=== PATIENT | male | born 2000 | race Caucasian/White ===

== ENCOUNTER 2025-04-13 11:29 | Emergency (ER) | payer OTHER, SELFPAY ==
--- NOTE | 2025-04-13 11:44 | ED_ITS ---
HPI - URI/Sore Throat General Chief Complaint: Upper Respiratory Infection Stated Complaint: SORE THROAT Time Seen by Provider: 04/13/25 11:44 Source: patient Mode of arrival: ambulatory Limitations: no limitations History of Present Illness HPI Narrative: 24-year-old male presents with complaint of sore throat for 12 days. Afebrile. Reports fatigue. Approximately 1 week ago was given a Z-Shravan prescription that his mother had all, took 3 days of antibiotics and then lost prescription package. States the last 2 days sore throat is worse. All systems reviewed and negative except as noted above. Related Data Allergies Allergy/AdvReac Type Severity Reaction Status Date / Time No Known Allergies Allergy Verified 04/13/25 11:48 Review of Systems Review of Systems: CONSTITUTIONAL: Denies fever, chills, or sweats. Reports fatigue. EYES: Denies visual changes, redness, or discharge. ENT: Denies rhinorrhea, congestion. Reports sore throat. Denies otalgia. CARDIOVASCULAR: Denies chest pain, palpitations, or edema. RESPIRATORY: Denies cough or dyspnea. GASTROINTESTINAL: Denies abdominal pain, nausea, vomiting, or diarrhea. GENITOURINARY: Denies dysuria or hematuria. SKIN: Denies rash or itching. MUSCULOSKELETAL: Denies back pain, joint pain, or myalgia. NEUROLOGIC: Denies headache, numbness, or weakness. PSYCHIATRIC: Denies anxiety or depression. All other systems reviewed are negative, except as documented in HPI. PMFSH Comments At time of signature, agree with nursing past medical, surgical, social and family history. There is no relevant family history pertinent to the presenting complaint. Exam Narrative: GENERAL: This is a well-nourished, well-developed patient, in no apparent distress. HEAD: normocephalic, atraumatic. EYES: PERRL. Sclera clear/white. Vision is grossly intact. EARS: External ears normal, auditory canals clear and without drainage, TMs no rmal without perforation. Hearing grossly intact. NOSE: External nose normal with no obvious nasal discharge, nares without redness, no rhinorrhea. THROAT: Mucous membranes moist, erythematous with mild swelling. No significant swelling noted to tonsils, no exudates NECK: Neck supple, non-tender without lymphadenopathy, masses or thyromegaly. CARDIOVASCULAR: Regular rate and rhythm without murmurs, gallops, or rubs. RESPIRATORY: Clear to auscultation. Breath sounds equal bilaterally. No wheezes, rales, or rhonchi. SKIN: warm, Dry, intact with no suspicious lesions or rash, good texture and turgor. NEURO: awake, alert, and oriented to person, place and time. There were no obvious focal neurologic abnormalities. EXTREMITIES: No joint tenderness, effusion, or edema noted. Course Course Level of Care: Express Care Visit Vital Signs Vital signs: Reviewed MDM - URI/Sore Throat MDM Narrative Medical decision making narrative: Negative rapid strep. Will treat patient with antibiotic due to patient's symptoms and exam findings. Patient is well-appearing, nontoxic. Discharge Plan Discharge Clinical Impression: Acute pharyngitis Patient Disposition: Home Condition: Stable Instructions: Antibiotic Form, Pharyngitis (ED) Additional Instructions: Your strep test was negative today. Due to your symptoms and exam findings I am prescribing an antibiotic. Take antibiotic as prescribed until gone. Change toothbrush after taking antibiotic for 24 hours. Take Tylenol or ibuprofen every 6-8 hours as needed for pain and fever. Drink plenty of fluids and rest. See your doctor if symptoms are not improving. Patient Language: Wolof Prescriptions: New amoxicillin 500 mg capsule 500 mg PO Q12H 10 Days Qty: 20 0RF Follow-up/Referrals: Martinez, Annetta [Other] Time of Disposition: 12:00
[2025-04-13 11:54] VITALS: BP 138/109; PULSE 78; RESP 16; TEMP 37.2; O2SAT 99
[2025-04-13 12:05] LABS: EDSTREPNEGPOS1 Negative (Negative)
[2025-04-13 12:07] LABS: EDSTREPNEGPOS1 Negative (Negative)
== END 2025-04-13 12:02 | disposition home or self-care (01) ==
PROVIDERS: Emergency Provider Nurse Practitioner Family
DX: J02.9 Acute pharyngitis, unspecified (principal)
CPT/HCPCS: 87081; 87880; 99203; G0463

== ENCOUNTER 2025-04-23 14:18 | Emergency (ER) | payer OTHER, SELFPAY ==
--- NOTE | 2025-04-23 14:25 | ED.WOUNDLAC ---
HPI - Wound/Laceration General Chief Complaint: Skin/Abscess/Foreign Body Stated Complaint: cut right forearm Time Seen by Provider: 04/23/25 14:49 Source: patient, RN notes reviewed and old records reviewed Mode of arrival: ambulatory Limitations: no limitations History of Present Illness HPI narrative: 20 for old male presents to the [facility] with a wound arm. States that he cut himself on April 18, has been cleaning at home. Wound is 2 and half by 1 and half with a half by 1 area open center. No purulent drainage. No fluctuance. No increased warmth. No significant erythema, area is mildly pink Onset (ago): day(s) (5) Patient tetanus UTD: No Related Data Home Medications ?Medication ?Instructions ?Recorded ?Confirmed ?Last Taken ?Type escitalopram oxalate 10 mg tablet mg 04/23/25 Unknown History Allergies Allergy/AdvReac Type Severity Reaction Status Date / Time No Known Allergies Allergy Verified 04/23/25 14:26 Review of Systems Review of Systems: All systems reviewed & are unremarkable except as noted in HPI and below Constitutional: Constitutional: Reports no additional constitutional complaints ENT: Reports system reviewed and no additional complaints, except as documented Cardiovascular: Cardiovascular: Reports no additional cardiovascular complaints, Denies chest pain and Denies dyspnea Respiratory: Respiratory: Reports no additional respiratory complaints, Denies chest congestion, Denies cough and Denies dyspnea Musculoskeletal: Musculoskeletal: Reports no additional musculoskeletal complaints Integumentary/Breasts: Skin/Breast: Reports as per HPI PMFSH Comments At the time of my signature, I reviewed and agree with the nursing past medical, surgical, social, and family history. There is no relevant family history pertinent to the patient complaint. Exam Const: General: cooperative, healthy appearing, comfortable, no acute distress, well developed, alert and well nourished Nutritional Appearance: well nourished Orientation/consciousness: patient oriented x3 Limitations: no limitations HENMT: Head: normal to inspection Eyes: General: appearance normal, both eyes and all related structures Alignment and Position: alignment normal Neck: Neck: normal visual inspection, full ROM, no lymphadenopathy and no meningeal signs Chest: Chest palpation & inspection: normal inspection of the chest Resp: Effort & Inspection: normal respiratory effort and able to speak in complete sentences Cardio: Rate: regular rate Skin: General skin exam: normal color and no rashes or lesions noted Wounds: wounds noted Other: Open area 1/2 x 1 cm. [place] without significant erythema or fluctuance 2 and half by 1 and half, mid right forearm Neuro: General: patient oriented x3, gait normal, moves all extremities and no meningeal signs Cognition (Neuro): normal cognition Speech: normal speech Gait exam (Neuro): Normal gait present Extrem: General: normal to inspection, full ROM, capillary refill normal and normal gait Psych: Appearance: grossly normal and well kempt Mental Status: mental status grossly normal Speech and movement: Normal speech and movement present and Clear speech present Affect: normal affect Attitude: cooperative Course Course Level of Care: Express Care Visit Vital Signs Vital signs: Vital Signs Temperature 98.8 F 04/23/25 14:45 Pulse Rate 65 04/23/25 14:45 Respiratory Rate 16 04/23/25 14:45 Blood Pressure 134/78 04/23/25 14:45 Pulse Oximetry 100 04/23/25 14:45 Temperature 98.8 F 04/23/25 14:45 Pulse Rate 65 04/23/25 14:45 Respiratory Rate 16 04/23/25 14:45 Blood Pressure 134/78 04/23/25 14:45 Pulse Oximetry 100 04/23/25 14:45 Reviewed MDM - Wound/Laceration MDM Narrative Medical decision making narrative: Patient presents 5 days post injury, concerns for his tetanus. Tetanus was updated Patient cut himself, probably needed sutures at that time, area is healing well. no signs of cellulitic changes Patient is appropriate for outpatient treatment and close follow-up Patient's wound cleaned, and dressed. Discharge instructions reviewed with patient, as well as provided in writing per nursing staff. The instructions also include specific and strict return/GO TO THE ER as well as f/u information. All questions have been answered, and the patient deny any further questions with discharge and discharge plan. Some parts of this dictation were generated by voice recognition software and may contain typographical and/or grammatical inaccuracies. Differential Diagnosis Differential diagnosis: Likely laceration, abscess, abrasion, avulsion of skin and other (Cellulitis) Critical Care Time Critical Care Time Critical Care Time: No Discharge Plan Discharge Clinical Impression: Visit for wound check, Vaccine for [id number], combined Patient Disposition: Home Condition: Stable Instructions: Acute Wounds (ED) Additional Instructions: Wash area twice daily with warm soapy water, pat dry. Apply a very small amount of Neosporin or bacitracin. When not at home keep it covered. When at home try leaving open to air Follow-up with primary care provider If you are having a hard time finding a physician please call our [facility] liaison at [phone]. Patient Language: Kinyarwanda Prescriptions: No Action escitalopram oxalate 10 mg tablet Follow-up/Referrals: UNKNOWN,DOCTOR [Non-Staff] - Stand Alone Forms: Work/School Release IP Time of Disposition: 15:04
[2025-04-23] MEDS: TETANUS,DIPHTHERIA,AC PERTUSSIS ADULT (0.5 ML) BOOSTRIX IM (14:41)
[2025-04-23 14:45] VITALS: BP 134/78; PULSE 65; RESP 16; TEMP 37.1; O2SAT 100
== END 2025-04-23 15:07 | disposition home or self-care (01) ==
PROVIDERS: Emergency Provider Nurse Practitioner
DX: S51.801A Unspecified open wound of right forearm, initial encounter (principal); W45.8XXA Other foreign body or object entering through skin, initial encounter; Z23 Encounter for immunization
CPT/HCPCS: 90471; 90715; 99212; G0463